=== PATIENT | female | born 1975 | race Caucasian/White ===

== ENCOUNTER 2017-09-25 14:43 | Emergency (ER) | payer OTHER ==
[~2017-09-25] VITALS: Ht 154.9 cm; Wt 89.1 kg
[~2017-09-25 14:43] MED LIST: Cipro PO; ENDOCET 5-3251 EACH PO; NOHOMEMEDS; PROTONIX40 MG PO
[2017-09-25] MEDS ORDERED: VISTARIL25 MG PO (17:39)
[2017-09-25 17:49] VITALS: BP 126/84
== END 2017-09-25 17:49 | disposition home or self-care (01) ==
LOC: EME 14:43
DX: F41.9 Anxiety disorder, unspecified (principal); F43.0 Acute stress reaction
CPT/HCPCS: 99281; 99283